=== PATIENT | male | born 1950 | race Caucasian/White ===

== ENCOUNTER 2017-06-20 09:18 | Emergency (ER) | payer MEDICARE, BC ==
[2017-06-20 10:14] LABS: #Eosinphils 0.1 thou/uL (0.0-0.7); #Lymphocytes 1.2 thou/uL (1.20-3.40); #Monocytes 0.8 thou/uL (0.11-0.59); #Neutrophils 4.2 thou/uL (1.40-6.50); %Basophils 0.5 % (0.0-1.0); %Eosinophils 1.2 % (0.0-10.0); %Lymphocytes 19.7 % (21.0-51.0); %Monocytes 12.5 % (0.0-10.0); %Neutrophils 66.1 % (42.0-75.0); Hemoglobin 12.9 g/dL (14.0-18.0); Mean Corpuscular HGB CONC 32.6 g/dL (32.0-36.0); Mean Corpuscular Hemoglobin 30.1 pg (27.0-31.0); Mean Corpuscular Volume 92.3 fl (80.0-94.0); Mean Platelet Volume 7.1 fL (7.4-10.4); Platelet Count 335 thou/uL (130-400); RBC Distribution Width 12.2 % (11.5-14.5); Red Blood Cell (RBC) Count 4.29 mill/uL (4.70-6.10); White Blood Cell (WBC) Count 6.3 thou/uL (4.8-10.8)
[2017-06-20 10:35] LABS: ALT (SGPT) 30 U/L (8-55); AST (SGOT) 22 U/L (5-34); Albumin 3.8 g/dL (3.4-4.8); Alkaline Phosphatase 101 U/L (40-150); Anion Gap 13 mmol/L (10-20); BUN (Urea Nitrogen) 16 mg/dL (8.4-25.7); Bilirubin, Total 0.3 mg/dL (0.2-1.2); Calc. Creatinine Clearance 0 mL/min (70-130); Calcium 8.2 mg/dL (7.8-10.44); Carbon Dioxide 20 mmol/L (23-31); Chloride 109 mmol/L (98-107); Estimated GFR-MDRD 82; Globulin 2.3 g/dL (2.4-3.5); Glucose 97 mg/dL (80-115); Lipase 24 U/L (8-78); Potassium 3.6 mmol/L (3.5-5.1); Protein, Total 6.1 g/dL (5.8-8.1); Sodium 138 mmol/L (136-145)
--- NOTE | 2017-06-20 11:34 | CT ---
CT ABDOMEN AND PELVIS WITH IV CONTRAST: Date: 06/20/17 HISTORY: Abdominal pain and weight loss. Intestinal problems with onset of symptoms 4 months ago. Constipation alternating with diarrhea. COMPARISON: None available. FINDINGS: There is bibasilar atelectasis. Vascular calcifications are seen in the abdominal aorta and in the iliac arteries. There is difficult to characterize 11.0 mm low density cystic appearing lesion in the posterior aspec t lateral segment left hepatic lobe. Liver otherwise has a normal CT appearance. The spleen, pancreas, bilateral adrenal glands, and kidneys demonstrate a normal CT appearance. The urinary bladder is obscured due to streak and beam-hardening artifact from bilateral total hip pr ostheses. There is a small fat density structure within the proximal aspect of third portion of the duodenum pr obably related to small duodenal lipoma measuring 12.0 mm. A few scattered colonic diverticula are seen. The appendix is visualized and normal in caliber. Degenerative changes are seen within the lumbar spine. Prominent facet hypertrophic changes at the L5 -S1 level on the right, which does appear to result in severe right-sided neural foraminal narrowing. No free fluid, fluid collection, or lymphadenopathy seen in the abdomen or pelvis. IMPRESSION: 1. Difficult to characterize hypodense cystic lesion lateral segment left hepatic lobe. 2. Small duodenal lipoma. 3. No acute findings are seen in the abdomen or pelvis. There is no lymphadenopathy. POS: [facility]
[2017-06-20] MEDS ORDERED: ISOVUE-370 76%-LOCM 1 ML ONE (16:03)
== END 2017-06-20 13:54 | disposition home or self-care (01) ==
LOC: ERS 09:18
DX: K59.00 Constipation, unspecified (principal); I10 Essential (primary) hypertension; F41.9 Anxiety disorder, unspecified; Z79.899 Other long term (current) drug therapy
CPT/HCPCS: 36415; 74177; 80053; 82274; 83690; 85025; 87045; 87046; 87449; 87899; 96361; 96374; J2270

== ENCOUNTER 2017-11-07 10:28 | Outpatient (CLI) | payer MEDICARE, BC ==
--- NOTE | 2017-11-07 10:54 | RAD ---
THREE VIEWS RIGHT RIB SERIES: Indication: Pain. FINDINGS: No contusion, pleural effusion, or pneumothorax is demonstrated. No displaced right sided rib fractur e is evident. IMPRESSION: No displaced right sided rib fracture. POS: [facility]
== END 2017-11-07 10:29 | disposition home or self-care (01) ==
LOC: RAD-FRANK 10:28
PROVIDERS: ATTEND Nurse Practitioner Family
DX: R07.81 Pleurodynia (principal)

== ENCOUNTER 2017-12-13 03:01 | Emergency (ER) | payer MEDICARE, BC ==
[2017-12-13] MEDS ORDERED: Lidocaine 5% Patch TD SCH (04:00)
[2017-12-13] MEDS ORDERED: Ketorolac Tromethamine 30 MG/ML VIAL ONE (04:36)
--- NOTE | 2017-12-13 08:53 | RAD ---
LEFT RIBS TWO VIEWS PA CHEST RADIOGRAPH: History: Left sided rib pain. Fall. Comparison: None. FINDINGS: Linear markings in the right middle lobe and right lower lobe. Possible small right effusion. No pneu mothorax. Heart size upper limits of normal. There are mildly displaced fractures of the 10th and 11th ribs. IMPRESSION: 1. Mildly displaced fracture left lateral 10th and 11th ribs. 2. Linear markings in the right middle lobe and right lower lobe may represent infection or compressi ve atelectasis due to overlying effusions. POS: [facility]
== END 2017-12-13 04:59 | disposition home or self-care (01) ==
LOC: ERS 03:01
DX: S22.42XA Multiple fractures of ribs, left side, initial encounter for closed fracture (principal); I10 Essential (primary) hypertension; E78.5 Hyperlipidemia, unspecified; F41.9 Anxiety disorder, unspecified; Z79.899 Other long term (current) drug therapy; W19.XXXA Unspecified fall, initial encounter
CPT/HCPCS: 96374; J1885

== ENCOUNTER 2018-02-16 16:29 | Outpatient (CLI) | payer MEDICARE, BC ==
--- NOTE | 2018-02-16 18:14 | RAD ---
FOUR VIEWS OF THE RIGHT ELBOW: 02/16/18 COMPARISON: None. HISTORY: Right elbow pain. FINDINGS: Four views of the right elbow shows no evidence of acute fracture or dislocation. There are moderate to severe degenerative changes in the right elbow joint. There is partial absence of the radial head. No elbow effusion is seen. IMPRESSION: Moderate to severe right elbow degenerative change. POS: [facility]
== END 2018-02-16 16:30 | disposition home or self-care (01) ==
LOC: RAD-FRANK 16:29
PROVIDERS: ATTEND Nurse Practitioner Family
DX: M25.521 Pain in right elbow (principal); M19.021 Primary osteoarthritis, right elbow

== ENCOUNTER 2018-06-05 16:14 | Outpatient (CLI) | payer MEDICARE, BC ==
--- NOTE | 2018-06-05 16:41 | RAD ---
CHEST TWO VIEWS: COMPARISON: 04/22/2015 FINDINGS: There is elevation of the right hemidiaphragm. Bilateral patchy perihilar opacities are present. Th ere is mild enlargement of the cardiac silhouette. No effusion or discrete pneumothorax. IMPRESSION: 1. Bilateral perihilar opacities, which may reflect edema or bronchiolitis. Correlate clinically. 2. Elevation of right hemidiaphragm. 3. Prominent cardiac silhouette. POS: [facility]
== END 2018-06-05 16:15 | disposition home or self-care (01) ==
LOC: RAD-FRANK 16:14
PROVIDERS: ATTEND Nurse Practitioner Family
DX: R06.2 Wheezing (principal); R50.9 Fever, unspecified; R91.8 Other nonspecific abnormal finding of lung field; Q79.1 Other congenital malformations of diaphragm
CPT/HCPCS: 71046

== ENCOUNTER 2018-06-09 07:21 | Outpatient (CLI) | payer MEDICARE, BC ==
--- NOTE | 2018-06-09 07:54 | RAD ---
TWO VIEW CHEST: COMPARISON: 06/05/2018. CLINICAL HISTORY: Flu, followup. FINDINGS: There is elevation of the right hemidiaphragm. Interstitial prominence at the right lower lung zone is seen. There is right perihilar linear density, as well. Cardiac silhouette is accentuated, stabl e. IMPRESSION: Elevated right hemidiaphragm with interstitial and perihilar opacities at the right lower lung zone. This could relate to atelectasis or pneumonitis. POS: [facility]
== END 2018-06-09 07:22 | disposition home or self-care (01) ==
LOC: RAD-FRANK 07:21
PROVIDERS: ATTEND Nurse Practitioner Family
DX: J10.1 Influenza due to other identified influenza virus with other respiratory manifestations (principal); R91.8 Other nonspecific abnormal finding of lung field; J98.6 Disorders of diaphragm
CPT/HCPCS: 71046

== ENCOUNTER 2018-09-18 21:23 | Emergency (ER) | payer MEDICARE, BC ==
[2018-09-18 22:06] LABS: #Basophils 0.1 thou/uL (0.0-0.2); #Eosinphils 0.2 thou/uL (0.0-0.7); #Monocytes 0.5 thou/uL (0.11-0.59); #Neutrophils 7.1 thou/uL (1.40-6.50); %Basophils 0.8 % (0.0-1.0); %Eosinophils 1.8 % (0.0-10.0); %Lymphocytes 20.4 % (21.0-51.0); Hemoglobin 12.9 g/dL (14.0-18.0); Mean Corpuscular HGB CONC 32.5 g/dL (32.0-36.0); Mean Corpuscular Hemoglobin 30.4 pg (27.0-31.0); Mean Corpuscular Volume 93.6 fL (78.0-98.0); Mean Platelet Volume 8.1 fL (7.4-10.4); Platelet Count 269 thou/uL (130-400); Red Blood Cell (RBC) Count 4.22 mill/uL (4.70-6.10); White Blood Cell (WBC) Count 9.9 thou/uL (4.8-10.8)
[2018-09-18 22:22] LABS: ALT (SGPT) 33 U/L (8-55); AST (SGOT) 22 U/L (5-34); Albumin 3.8 g/dL (3.4-4.8); Alkaline Phosphatase 101 U/L (40-150); Anion Gap 14 mmol/L (10-20); BUN (Urea Nitrogen) 15 mg/dL (8.4-25.7); Bilirubin, Total 0.2 mg/dL (0.2-1.2); CK (CPK) 107 U/L (30-200); Calc. Creatinine Clearance 0 mL/min (70-130); Calcium 8.1 mg/dL (7.8-10.44); Carbon Dioxide 20 mmol/L (23-31); Chloride 110 mmol/L (98-107); Estimated GFR-MDRD 78; Globulin 2.1 g/dL (2.4-3.5); Glucose 157 mg/dL (80-115); Potassium 3.6 mmol/L (3.5-5.1); Protein, Total 5.9 g/dL (5.8-8.1); Sodium 140 mmol/L (136-145)
[2018-09-18] MEDS ORDERED: Ketorolac Tromethamine 30 MG/ML VIAL ONE (22:48)
[2018-09-19 00:43] LABS: Lactic Acid 1.7 mmol/L (0.5-2.2)
[2018-09-19 01:45] LABS: Bilirubin Negative (Negative); Blood, Urine Negative (Negative); Clarity CLEAR (Clear); Glucose, Urine (Dipstick) Negative (Negative); Leukocyte Negative (Negative); Nitrite Negative (Negative); Protein, Urine (Dipstick) Negative (Neg-Trace); Specific Gravity, Urine 1.011 (1.002-1.036); Urobilinogen 0.2 mg/dL (0.2-1.0); pH, Urine 5.5 (5.0-9.0)
== END 2018-09-19 01:36 | disposition home or self-care (01) ==
LOC: ERS 21:23
DX: T67.5XXA Heat exhaustion, unspecified, initial encounter (principal); I10 Essential (primary) hypertension; E78.5 Hyperlipidemia, unspecified; F41.9 Anxiety disorder, unspecified; Z79.899 Other long term (current) drug therapy
CPT/HCPCS: 36415; 80053; 81003; 82550; 83605; 84484; 85025; 96361; 96374; J1885

== ENCOUNTER 2018-11-24 07:40 | Outpatient (CLI) | payer MEDICARE, BC ==
--- NOTE | 2018-11-24 09:11 | RAD ---
ABDOMEN 1 VIEW: Date: 11/24/18 HISTORY: Abdominal pain and bloating. FINDINGS: Gas and stool over the colon. Scattered nondilated gas-filled loops of small bowel throughout the abd omen. Nonspecific pattern. Osseous structures are demineralized. Vascular calcifications over the pel vis. Bilateral hip prostheses partially visualized. IMPRESSION: Nonspecific bowel gas pattern. POS: [facility]
== END 2018-11-24 07:41 | disposition home or self-care (01) ==
LOC: RAD-FRANK 07:40
PROVIDERS: ATTEND Nurse Practitioner Family
DX: R10.9 Unspecified abdominal pain (principal); R14.0 Abdominal distension (gaseous)
CPT/HCPCS: 74018

== ENCOUNTER 2018-12-15 09:25 | Outpatient (CLI) | payer MEDICARE, BC ==
--- NOTE | 2018-12-15 09:40 | RAD ---
2 views of the chest: 12/15/2018 COMPARISON: 06/09/2018 HISTORY: Cough FINDINGS: Stable elevation of the right hemidiaphragm. Heart and mediastinal contours are unchanged. No pneumothorax or pleural fluid. No focal consolidation or alveolar edema. IMPRESSION: No acute findings.
== END 2018-12-15 09:26 | disposition home or self-care (01) ==
LOC: RAD-FRANK 09:25
PROVIDERS: ATTEND Nurse Practitioner Family
DX: R05 Cough (principal)
CPT/HCPCS: 71046

== ENCOUNTER 2019-01-03 09:36 | Outpatient (CLI) | payer MEDICARE, BC ==
--- NOTE | 2019-01-03 10:11 | RAD ---
EXAM: Two views chest PROVIDED CLINICAL HISTORY: Wheezing COMPARISON: 12/15/2018 FINDINGS: Cardiac silhouette and pulmonary vasculature are within normal limits. There is mild elevation right hemidiaphragm with mild atelectasis present at the right lung base. The lungs are otherwise clear. Mild degenerative changes are again seen in the spine. Vascular calcifications are seen in the thorac ic and visualized abdominal aorta. IMPRESSION: No acute cardiopulmonary process.
== END 2019-01-03 09:37 | disposition home or self-care (01) ==
LOC: RAD-FRANK 09:36
PROVIDERS: ATTEND Nurse Practitioner Family
DX: R06.2 Wheezing (principal)
CPT/HCPCS: 71046

== ENCOUNTER 2019-02-04 02:19 | Emergency (ER) | payer MEDICARE, BC ==
[2019-02-04] MEDS ORDERED: Orphenadrine Citrate 60 MG/2 ML VIAL IM SCH (03:30)
[2019-02-04] MEDS ORDERED: HYDROcodone/Acetaminophen 5/325 mg Tablet ONE (03:41)
--- NOTE | 2019-02-04 09:11 | RAD ---
RADIOGRAPH CHEST 2 VIEW: DATE: 02/04/2019 HISTORY: 68-year-old male status post acute chest trauma due to fall. FINDINGS: There is no airspace density, pulmonary edema, pleural effusion, or pneumothorax. Elevated right amberly diaphragm. IMPRESSION: No acute pulmonary findings.
--- NOTE | 2019-02-04 10:16 | CT ---
PRELIMINARY REPORT/[facility]/EMERGENCY AFTER HOURS PROCEDURE: PROCEDURE INFORMATION: Exam: CT Chest Without Contrast Exam date and time: 02/04/2019 3:11 AM Clinical history: 68 years old, male; Injury or trauma; Initial encounter; Abrasion; Patient HX: Er 8 . M68 presents to the ED S/P fall onset at 1830. PT reports he fell onto his right side, landing on a large aleksandar pot. PT reports pain to his right lateral chest where he hit the pot. PT reports muscle s pasms to the area. Worse with deep breaths and movement. TECHNIQUE: Imaging protocol: Computed tomography of the chest without contrast. COMPARISON: No relevant prior studies available. FINDINGS: Lungs: No pulmonary contusion. Pleural space: No pneumothorax or hemothorax. Heart: Unremarkable. No cardiomegaly. No pericardial effusion. Mediastinum: Esophagus is unremarkable. Aorta: No traumatic aortic injury. No mediastinal hematoma, pneumomediastinum, or hemopericardium. Lymph nodes: Unremarkable. No enlarged lymph nodes. Liver: Hepatic steatosis. Bones/joints: Multiple healing left-sided rib fracture deformities. Soft tissues: Unremarkable. IMPRESSION: No acute traumatic injury. Thank you for allowing us to participate in the care of your patient. Dictated and Authenticated by: Joshua Mckeon MD 02/04/2019 3:26 AM Central Time ([place] & [place]) FINAL REPORT CT CHEST WITHOUT CONTRAST: INDICATION: Trauma. Multiplanar reconstruction. FINDINGS: Lungs show chronic parenchymal change without evidence of pneumothorax or effusion. Numerous old lef t-sided rib fractures. I am in agreement with the preliminary report.
== END 2019-02-04 07:00 | disposition home or self-care (01) ==
LOC: ERS 02:19
DX: S20.211A Contusion of right front wall of thorax, initial encounter (principal); M62.838 Other muscle spasm; I10 Essential (primary) hypertension; E78.5 Hyperlipidemia, unspecified; F41.9 Anxiety disorder, unspecified; Z79.899 Other long term (current) drug therapy; W18.30XA Fall on same level, unspecified, initial encounter
CPT/HCPCS: 71046; 71250; 96372; J2360

== ENCOUNTER 2019-03-22 10:36 | Emergency (ER) | payer MEDICARE, BC ==
[2019-03-22] MEDS ORDERED: CEFAZOLIN 1 GM VIAL ONE (10:51)
[2019-03-22] MEDS ORDERED: Bupivacaine 0.5% 10 ML VIAL ONE (10:53)
--- NOTE | 2019-03-22 11:57 | RAD ---
XR Finger(s) Rt Min 2 View HISTORY: Injury, right index finger pain FINDINGS: There is a displaced fracture involving the tuft of the distal phalanx.
--- NOTE | 2019-03-22 12:02 | RAD ---
LEFT THUMB THREE VIEWS: HISTORY: Trauma. Injury. Left thumb pain. FINDINGS: Degenerative changes are present. There is a fracture involving the tuft of the distal phalanx. No ra diopaque foreign body is seen. POS: [facility]
[2019-03-22] MEDS ORDERED: Morphine 4 MG/ML VIAL ONE (13:57)
[2019-03-22] MEDS ORDERED: Ondansetron PF 4 MG/2 ML Vial ONE (14:45)
[2019-03-22] MEDS ORDERED: Bacitracin 1 PK ONE (15:13)
== END 2019-03-22 15:45 | disposition home or self-care (01) ==
LOC: ERS 10:36
DX: S62.630A Displaced fracture of distal phalanx of right index finger, initial encounter for closed fracture (principal); S62.522A Displaced fracture of distal phalanx of left thumb, initial encounter for closed fracture; S61.210A Laceration without foreign body of right index finger without damage to nail, initial encounter; S61.012A Laceration without foreign body of left thumb without damage to nail, initial encounter; E78.5 Hyperlipidemia, unspecified; E78.00 Pure hypercholesterolemia, unspecified; I10 Essential (primary) hypertension; F41.9 Anxiety disorder, unspecified; K21.9 Gastro-esophageal reflux disease without esophagitis; Z79.899 Other long term (current) drug therapy; W27.0XXA Contact with workbench tool, initial encounter
CPT/HCPCS: 12002; 96365; 96375; J0690; J2270; J2405; J3490

== ENCOUNTER 2019-03-27 05:52 | Day surgery (SDC) | payer MEDICARE, BC ==
[2019-03-26 17:11] VITALS: BMI 28.5
[2019-03-27] MEDS ORDERED: Bacitracin Zinc Ointment 30 gm TUBE ONE (06:31)
[2019-03-27] MEDS ORDERED: Bupivacaine PF 0.5% 30 ML VIAL ONE (06:31)
[2019-03-27] MEDS ORDERED: Sodium Chloride 0.9% 0 ML ONE (06:31)
[2019-03-27] MEDS ORDERED: Fentanyl 100 MCG/2 ML VIAL ONE ×3 (06:43→09:44)
[2019-03-27 07:00] LABS: #Basophils 0.1 thou/uL (0.0-0.2); #Eosinphils 0.3 thou/uL (0.0-0.7); #Lymphocytes 2.7 thou/uL (1.20-3.40); #Monocytes 0.8 thou/uL (0.11-0.59); #Neutrophils 4.8 thou/uL (1.40-6.50); %Basophils 1.2 % (0.0-1.0); %Eosinophils 3.4 % (0.0-10.0); %Lymphocytes 30.5 % (21.0-51.0); %Monocytes 9.4 % (0.0-10.0); %Neutrophils 55.6 % (42.0-75.0); Hemoglobin 14.6 g/dL (14.0-18.0); Mean Corpuscular HGB CONC 33.3 g/dL (32.0-36.0); Mean Corpuscular Hemoglobin 31.8 pg (27.0-31.0); Mean Corpuscular Volume 95.4 fL (78.0-98.0); Mean Platelet Volume 8.1 fL (7.4-10.4); Platelet Count 312 thou/uL (130-400); RBC Distribution Width 11.6 % (11.5-14.5); Red Blood Cell (RBC) Count 4.61 mill/uL (4.70-6.10); White Blood Cell (WBC) Count 8.7 thou/uL (4.8-10.8)
[2019-03-27] MEDS ORDERED: Midazolam HCl 2 mg/2 ml Vial ONE (07:04)
[2019-03-27] MEDS ORDERED: hydrALAZINE 20 MG/ML VIAL ONE (07:15)
[2019-03-27 07:19] LABS: Anion Gap 12 mmol/L (10-20); BUN (Urea Nitrogen) 14 mg/dL (8.4-25.7); Calc. Creatinine Clearance 96 mL/min (70-130); Calcium 9.2 mg/dL (7.8-10.44); Carbon Dioxide 26 mmol/L (23-31); Chloride 103 mmol/L (98-107); Estimated GFR-MDRD 76; Glucose 141 mg/dL (80-115); Potassium 3.7 mmol/L (3.5-5.1); Sodium 137 mmol/L (136-145)
[2019-03-27] MEDS ORDERED: Sodium Chloride 0.9% 10 ML ONE ×2 (08:38→08:39)
[2019-03-27] MEDS ORDERED: Ketorolac Tromethamine 30 MG/ML VIAL ONE (09:45)
[2019-03-27] MEDS ORDERED: Ondansetron PF 4 MG/2 ML Vial ONE (09:45)
[2019-03-27] MEDS ORDERED: Lidocaine 1% PF 5 ML VIAL ONE (09:45)
[2019-03-27] MEDS ORDERED: Labetalol HCl 100 MG/20 ML VIAL ONE (09:45)
[2019-03-27] MEDS ORDERED: PROPOFOL 200 MG/20 ML VIAL ONE (09:45)
--- NOTE | 2019-03-27 14:05 | OP ---
DATE OF PROCEDURE: PREOPERATIVE DIAGNOSES: 1. Right index finger open wound with open fracture and nailbed defect. 2. thumb wound, 3 cm with small fracture in distal phalanx of thumb. 3. Circulation intact in both wounds. POSTOPERATIVE DIAGNOSES: 1. Right index finger open wound with open fracture and nailbed defect. 2. thumb wound, 3 cm with small fracture in distal phalanx of thumb. 3. Circulation intact in both wounds. PROCEDURES PERFORMED: 1. Right index finger. a. Wound debridement down to including the fracture. 2. Wound closure 3 cm. 3. Nailbed repair. 4. Open treatment of distal phalanx fracture to thumb. a. Wound debridement. b. Open fracture debridement. ESTIMATED BLOOD LOSS: 15 mL. TOTAL TOURNIQUET TIME: Right, 15 minutes. Left, none. FINDINGS: Again mild particle wound contamination in the thumb, slightly greater than right index finger and nailbed defect of approximately 2 mm hematoma, requiring fast wound care techniques. DESCRIPTION OF PROCEDURE: After successful general endotracheal anesthesia, the limb was prepped and draped. Both limbs were prepped and draped simultaneously with the help of surgeon and the circulating nurse. We then approached the left side 1st, removed the sutures, opened the wound up, identified the fracture, debrided with a curette, irrigated with a liter of normal saline using bulb syringe technique and then debrided the wound edges with tenotomy scissors. We used excisional technique and depth was including the fracture. We then had circulation in the distal tip and closed the wound with interrupted 4-0 nylon in simple pattern. We placed a sterile dressing on this side; bacitracin, Adaptic, 4x4, and Kerlix. We then approached the right side, exsanguinated the limb, and inflated tourniquet. Both sides were given a block at the metacarpophalangeal joint level with 15 on the thumb on the and 20 at the index finger on the right. We then removed the one suture placed, and began sequential debridement of the wound edges using the same instruments and techniques used for the left side. This included the nailbed and the bone, which was curetted. There was 1 or 2 particles found in the bone, which had to be excised using taking a small piece of bone away with a baby rongeur. Once we completely cleared the hematoma and any debris, which includes debridement of material associated with open fracture, fracture care was accomplished by simply reducing the soft tissue edges, which gave some approximation. That was the open treatment. We then repaired the skin edge to help align the nailbed defect using 5-0 nylon interrupted in simple pattern. We then used 6 different 5-0 chromic sutures to reapproximate the nailbed, which was done in excellent fashion with no gap formation. When the digit was flexed and extended, there was no gap formation. The tourniquet was deflated. Hemostasis was excellent. We had a pink digit. The patient then had the same bulky dressing applied on the right as left, both were covered with a 2-inch Coban and the patient left the operating room without evidence of anesthetic or operative complication. Job ID: [id number]
== END 2019-03-27 16:05 | disposition home or self-care (01) ==
LOC: SDC 05:52
PROVIDERS: ATTEND Orthopaedic Surgery Hand Surgery
PROC: 0PBV0ZZ Excision of Left Finger Phalanx, Open Approach (ICD-10-PCS; principal; 2019-03-27)
PROC: 0PBT0ZZ Excision of Right Finger Phalanx, Open Approach (ICD-10-PCS; 2019-03-27)
PROC: 0HQQXZZ Repair Finger Nail, External Approach (ICD-10-PCS; 2019-03-27)
DX: S62.525B Nondisplaced fracture of distal phalanx of left thumb, initial encounter for open fracture (principal); S62.630B Displaced fracture of distal phalanx of right index finger, initial encounter for open fracture; I10 Essential (primary) hypertension; Z79.899 Other long term (current) drug therapy; W27.0XXA Contact with workbench tool, initial encounter
CPT/HCPCS: 80048; 85025; 85652; J0360; J0690; J1885; J2001; J2250; J2405; J2704; J3010; J3490; S0020

== ENCOUNTER 2020-03-07 08:18 | Outpatient (CLI) | payer MEDICARE, BC ==
--- NOTE | 2020-03-07 10:13 | MRI ---
MRI OF THE LEFT SHOULDER WITHOUT CONTRAST: INDICATION: History of adhesive capsulitis. COMPARISON: None. FINDINGS: There is a partial thickness intrasubstance tear involving the mid to posterior supraspinatus at the footprint measuring 0.8 x 0.6 cm on image 23 of series 6 and image 6 of series 4. There is moderate supraspinatus and infraspinatus tendinosis. No muscular atrophy is evident. No full-thickness tear is evident. There is severe tendinosis involving the intraarticular biceps. There is severe degener ative fraying of the glenoid labrum. There are areas of full-thickness chondral thinning involving t he posterior inferior glenoid with subchondral cyst-like abnormalities. There is mild osteoarthrosis involving the left glenohumeral joint. There is moderate to severe AC joint osteoarthrosis. The vi sualized capsule within the axillary recess and rotator interval appears within normal limits. Small intraarticular body seen within the inferior aspect of the glenohumeral joint measuring 3.6 mm. The biceps tendon is located within the bicipital groove. IMPRESSION: 1. Partial thickness low-grade intrasubstance tear involving the mid posterior supraspinatus at the footprint with moderate supraspinatus and infraspinatus tendinosis. 2. Mild glenohumeral osteoarthrosis with degenerative fraying of the glenoid labrum. 3. Severe tendinosis of the intraarticular biceps tendon. 4. Severe acromioclavicular joint osteoarthrosis. POS: [facility]
== END 2020-03-07 08:19 | disposition home or self-care (01) ==
LOC: TBSIIMAG 08:18
PROVIDERS: ATTEND Orthopaedic Surgery
DX: M75.02 Adhesive capsulitis of left shoulder (principal); M19.012 Primary osteoarthritis, left shoulder; M75.82 Other shoulder lesions, left shoulder; M75.112 Incomplete rotator cuff tear or rupture of left shoulder, not specified as traumatic

== ENCOUNTER 2020-06-12 07:25 | Day surgery (SDC) | payer MEDICARE, BC ==
[2020-06-04 11:30] VITALS: BMI 27.1
[2020-06-12] MEDS ORDERED: Ropivacaine 2% HCl/PF (20 MG/10 ML VIAL) ONE (08:54)
[2020-06-12] MEDS ORDERED: PROPOFOL 200 MG/20 ML VIAL ONE (08:54)
[2020-06-12] MEDS ORDERED: Lidocaine 1% PF 5 ML VIAL ONE (08:54)
[2020-06-12] MEDS ORDERED: Rocuronium Bromide 10 MG/ML (10ML VIAL) ONE (08:54)
[2020-06-12] MEDS ORDERED: Ropivacaine 0.5% HCl/PF (150 MG/30 ML VIAL) ONE (08:54)
[2020-06-12] MEDS ORDERED: Midazolam HCl 2 mg/2 ml Vial ONE (08:56)
[2020-06-12] MEDS ORDERED: Fentanyl 100 MCG/2 ML VIAL ONE ×4 (08:56→12:40)
[2020-06-12] MEDS ORDERED: Fentanyl 100 MCG/2 ML VIAL IV PRN (09:49)
[2020-06-12] MEDS ORDERED: traMADol HCl 50 MG TAB PO PRN ×2 (10:00)
[2020-06-12] MEDS ORDERED: Ondansetron PF 4 MG/2 ML Vial IVP PRN (10:00)
[2020-06-12] MEDS ORDERED: Ropivacaine 0.2% 550 ML 550 ML NERVE BLCK SCH (10:00)
[2020-06-12] MEDS ORDERED: HYDROcodone/Acetaminophen 10/325 mg Tablet PO PRN ×2 (10:00)
[2020-06-12] MEDS ORDERED: Zolpidem Tartrate 5 MG TAB PO PRN (10:00)
[2020-06-12] MEDS ORDERED: Promethazine HCl 25 MG/ML VIAL IM PRN (10:00)
[2020-06-12] MEDS ORDERED: SUGAMMADEX SODIUM 200 MG/2 ML VIAL ONE (11:03)
[2020-06-12] MEDS ORDERED: Ketorolac Tromethamine 30 MG/ML VIAL ONE (11:49)
[2020-06-12] MEDS ORDERED: Ketorolac Tromethamine 30 MG/ML VIAL IVP SCH (12:00)
[2020-06-12] MEDS ORDERED: HYDROcodone/Acetaminophen 5/325 mg Tablet ONE (13:55)
--- NOTE | 2020-06-12 18:08 | OP ---
DATE OF PROCEDURE: 06/12/2020 TITLE OF PROCEDURE: Left shoulder biceps tenodesis and subscapularis repair. ASSISTANTS: Dario. BLOOD LOSS: Less than 100. SPECIMEN: None. DRAINS: None. COMPLICATIONS: None. IMPLANTS USED: Arthrex Bio-Tenodesis screw size 7 x 23 mm. NARRATIVE REPORT: The patient was taken to the operating room, where general anesthesia was induced. Left arm was prepped and draped in the usual sterile fashion. I made a small deltopectoral approach. Dissection carried down through the interval. The biceps tendon was identified. The subscapularis leading edge tear was identified. I opened up the biceps tendon sheath and coagulated the vessels in this area. I did transect about the top 2.5 cm, biceps was severely frayed and then prepared the stump of the biceps for repair using #2 FiberWire suture in a Krackow type stitch, measured this some 7 mm, irrigated and drilled a 7 mm hole. The tendon was then dunked into the bone and the 7 mm Bio-Tenodesis screw was used to fix the tendon to the bone. I then tied the sutures over the screw as well. Attention was turned back to the subscapularis. I repaired the subscapularis with transosseous Ethibond sutures for a good watertight repair. Irrigation was performed. Hemostasis was obtained. Subcu tissue was closed with 2-0 Vicryl. Skin was closed with bassam. Sterile dressings were applied. There were no complications. The rehab care assistant/co-surgeon was present through the entire procedure and was responsible for providing exposure, tissue retraction and any necessary limb or tissue manipulation required to obtain necessary reduction or hardware placement. The rehab care assistant/co-surgeon also provided bleeding control, tissue closure, and suturing in conjunction with the primary surgeon. Job ID: [id number]
== END 2020-06-12 14:45 | disposition home or self-care (01) ==
LOC: SDC 07:25
PROVIDERS: ATTEND Orthopaedic Surgery
PROC: 0LQ20ZZ Repair Left Shoulder Tendon, Open Approach (ICD-10-PCS; principal; 2020-06-12)
PROC: 0LS40ZZ Reposition Left Upper Arm Tendon, Open Approach (ICD-10-PCS; 2020-06-12)
PROC: 0RHK04Z Insertion of Internal Fixation Device into Left Shoulder Joint, Open Approach (ICD-10-PCS; 2020-06-12)
PROC: 3E0T3BZ Introduction of Anesthetic Agent into Peripheral Nerves and Plexi, Percutaneous Approach (ICD-10-PCS; 2020-06-12)
DX: M75.112 Incomplete rotator cuff tear or rupture of left shoulder, not specified as traumatic (principal); M75.02 Adhesive capsulitis of left shoulder; G89.18 Other acute postprocedural pain; I10 Essential (primary) hypertension; Z79.899 Other long term (current) drug therapy; Z91.041 Radiographic dye allergy status; Z96.643 Presence of artificial hip joint, bilateral
CPT/HCPCS: 23412; 23430; 64416; 97139; A4306; C1713; J0690; J1885; J2250; J2704; J2795; J3010

== ENCOUNTER 2020-06-21 20:14 | Emergency (ER) | payer MEDICARE, BC ==
[2020-06-21 20:57] LABS: #Basophils 0.1 thou/uL (0.0-0.2); #Eosinphils 0.4 thou/uL (0.0-0.7); #Lymphocytes 3.8 thou/uL (1.20-3.40); #Monocytes 0.9 thou/uL (0.11-0.59); #Neutrophils 10.8 thou/uL (1.40-6.50); %Basophils 0.7 % (0.0-1.0); %Eosinophils 2.2 % (0.0-10.0); %Lymphocytes 23.9 % (21.0-51.0); %Monocytes 5.4 % (0.0-10.0); %Neutrophils 67.8 % (42.0-75.0); Hemoglobin 14.7 g/dL (14.0-18.0); Mean Corpuscular HGB CONC 33.5 g/dL (32.0-36.0); Mean Corpuscular Hemoglobin 31.8 pg (27.0-31.0); Mean Corpuscular Volume 94.9 fL (78.0-98.0); Mean Platelet Volume 8.5 fL (7.4-10.4); Platelet Count 357 thou/uL (130-400); RBC Distribution Width 11.7 % (11.5-14.5); Red Blood Cell (RBC) Count 4.63 mill/uL (4.70-6.10); White Blood Cell (WBC) Count 15.9 thou/uL (4.8-10.8)
[2020-06-21 21:17] LABS: ALT (SGPT) 61 U/L (8-55); AST (SGOT) 38 U/L (5-34); Albumin 4.3 g/dL (3.4-4.8); Alkaline Phosphatase 110 U/L (40-110); Anion Gap 17 mmol/L (10-20); BUN (Urea Nitrogen) 15 mg/dL (8.4-25.7); Bilirubin, Total 0.4 mg/dL (0.2-1.2); Calc. Creatinine Clearance 0 mL/min (70-130); Calcium 8.4 mg/dL (7.8-10.44); Carbon Dioxide 21 mmol/L (23-31); Chloride 102 mmol/L (98-107); Globulin 2.6 g/dL (2.4-3.5); Glucose 188 mg/dL (83-110); Lipase 22 U/L (8-78); Potassium 3.5 mmol/L (3.5-5.1); Protein, Total 6.9 g/dL (5.8-8.1); Sodium 136 mmol/L (136-145)
[2020-06-21 21:18] LABS: Acetaminophen Less than 6.0 mcg/mL (10.0-30.0); Alcohol 258 mg/dL (Less than 10); Salicylate Less than 8.0 mg/dL (15.0-30.0)
[2020-06-21] MEDS ORDERED: Ondansetron PF 4 MG/2 ML Vial ONE (21:26)
== END 2020-06-21 23:52 | disposition home or self-care (01) ==
LOC: ERS 20:14
DX: S00.81XA Abrasion of other part of head, initial encounter (principal); F10.129 Alcohol abuse with intoxication, unspecified; K21.9 Gastro-esophageal reflux disease without esophagitis; E78.5 Hyperlipidemia, unspecified; E78.00 Pure hypercholesterolemia, unspecified; I10 Essential (primary) hypertension; Z79.899 Other long term (current) drug therapy; Y90.8 Blood alcohol level of 240 mg/100 ml or more; W17.89XA Other fall from one level to another, initial encounter
CPT/HCPCS: 36415; 70450; 71045; 72125; 80053; 80307; 83690; 85025; 93005; J2405

== ENCOUNTER 2020-08-22 09:59 | Outpatient (CLI) | payer MEDICARE, BC | END 2020-08-22 10:00 | disposition home or self-care (01) | LOC: TBSIIMAG 09:59 | PROVIDERS: ATTEND Family Medicine | DX: G89.4 Chronic pain syndrome (principal); M96.1 Postlaminectomy syndrome, not elsewhere classified; M51.16 Intervertebral disc disorders with radiculopathy, lumbar region; M47.26 Other spondylosis with radiculopathy, lumbar region; Z96.649 Presence of unspecified artificial hip joint | CPT/HCPCS: 72100; 72148 ==

== ENCOUNTER 2021-10-10 13:20 | Emergency (ER) | payer MEDICARE, BC ==
[2021-10-10] MEDS ORDERED: Lidocaine 1% PF 5 ML VIAL ONE (14:28)
[2021-10-10] MEDS ORDERED: Boostrix 0.5 ML (Tdap) VIAL ONE (14:36)
[2021-10-10] MEDS ORDERED: Bacitracin 1 PK ONE (15:49)
== END 2021-10-10 16:05 | disposition home or self-care (01) ==
LOC: ERS 13:20
DX: S61.011A Laceration without foreign body of right thumb without damage to nail, initial encounter (principal); W27.0XXA Contact with workbench tool, initial encounter; Z23 Encounter for immunization; K21.9 Gastro-esophageal reflux disease without esophagitis; E78.5 Hyperlipidemia, unspecified; E78.00 Pure hypercholesterolemia, unspecified; I10 Essential (primary) hypertension; Z79.899 Other long term (current) drug therapy
CPT/HCPCS: 12002; 90471; 90715

== ENCOUNTER 2022-07-20 10:18 | Outpatient (CLI) | payer MEDICARE, BC | END 2022-07-20 10:19 | disposition home or self-care (01) | LOC: RAD-FRANK 10:18 | PROVIDERS: ATTEND Nurse Practitioner Family | DX: R10.33 Periumbilical pain (principal) | CPT/HCPCS: 74018 ==

== ENCOUNTER 2022-07-22 07:50 | Outpatient (CLI) | payer MEDICARE, BC | END 2022-07-22 07:51 | disposition home or self-care (01) | LOC: CT 07:50 | PROVIDERS: ATTEND Nurse Practitioner Family | DX: K56.609 Unspecified intestinal obstruction, unspecified as to partial versus complete obstruction (principal); K76.89 Other specified diseases of liver; D17.5 Benign lipomatous neoplasm of intra-abdominal organs; K57.30 Diverticulosis of large intestine without perforation or abscess without bleeding; M47.9 Spondylosis, unspecified | CPT/HCPCS: 74177; 82565 ==

== ENCOUNTER 2022-08-19 14:05 | Outpatient (CLI) | payer MEDICARE, BC | END 2022-08-19 14:06 | disposition home or self-care (01) | LOC: BICRAD 14:05 | PROVIDERS: ATTEND Physician Assistant Medical | DX: R63.4 Abnormal weight loss (principal); K59.09 Other constipation; H53.9 Unspecified visual disturbance; R53.1 Weakness | CPT/HCPCS: 71046; 74019 ==

== ENCOUNTER 2022-08-24 07:32 | Outpatient (CLI) | payer MEDICARE, BC ==
[2022-08-24] MEDS ORDERED: Iopamidol 370 76% 100 ML VIAL ONE (10:02)
== END 2022-08-24 07:33 | disposition home or self-care (01) ==
LOC: CT 07:32
PROVIDERS: ATTEND Physician Assistant Medical
DX: H53.9 Unspecified visual disturbance (principal); R53.1 Weakness; K59.09 Other constipation; R63.4 Abnormal weight loss; G93.89 Other specified disorders of brain
CPT/HCPCS: 70470; 82565; Q9967

== ENCOUNTER 2023-05-06 13:37 | Outpatient (CLI) | payer MEDICARE, BC | END 2023-05-06 13:38 | disposition home or self-care (01) | LOC: SCSMRI 13:37 | PROVIDERS: ATTEND Family Medicine | DX: M47.26 Other spondylosis with radiculopathy, lumbar region (principal); M96.1 Postlaminectomy syndrome, not elsewhere classified; M48.061 Spinal stenosis, lumbar region without neurogenic claudication; M48.07 Spinal stenosis, lumbosacral region; M48.05 Spinal stenosis, thoracolumbar region | CPT/HCPCS: 72100; 72148 ==

== ENCOUNTER 2023-05-26 14:25 | Outpatient (CLI) | payer MEDICARE, BC | END 2023-05-26 14:26 | disposition home or self-care (01) | LOC: SCSMRI 14:25 | PROVIDERS: ATTEND Orthopaedic Surgery | DX: M25.551 Pain in right hip (principal) | CPT/HCPCS: 72195 ==